=== PATIENT | female | born 1965 | race Caucasian/White ===

== ENCOUNTER 2023-09-24 15:57 | Inpatient (IN) ==
[2023-09-24] MEDS ORDERED: Patient's ALLERGY Info needs ENTERED SCH (16:16)
--- NOTE | 2023-09-24 16:20 | Emergency Department Note ---
ED Provider Note History of Present Illness Chief Complaint: Abdominal Pain Stated Complaint: ABD PAIN Time Seen by Provider: 09/24/23 16:17 This patient is a 57-year-old female who presents to the emergency department for evaluation of abdominal pain and bloating. She states that Tuesday after eating dinner she vomited. She vomited again later after eating something. She states that she laid on the couch for 3 days straight. She then tried to go to work but was unable. She reports her most severe pain is in the right lower abdomen. It is painful for her to urinate. Denies BM changes or fevers. Home Medications Medication Instructions Recorded Confirmed Type amoxicillin 875 mg-potassium 1 tab PO BID #20 tabs 06/15/20 Rx clavulanate 125 mg tablet (Augmentin) Allergies Allergy/AdvReac Type Severity Reaction Status Date / Time No Known Allergies Allergy Unverified 09/25/23 02:47 Past Med/Surg History Medical History Asthma Depression Surgical History Hx of dilation and curettage Family History Daughter Apodaca sarcoma Sister Diabetes Social History Smoking Status: Current every day smoker Tobacco Type: Cigarettes Age Started Using Tobacco: 19; packs per day: 1; Second Hand Exposure: No; Do You Dip or Chew Tobacco: No; Tobacco Cessation Education Requested by Patient: No Hx Alcohol Use: No Hx Substance Use: No Preferred Language: Burkinan Communication Ability: Effective 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 GENERAL: This is a 57-year-old female, in no acute distress, nondiaphoretic, well-developed well-nourished. EARS: External auditory canals clear, tympanic membranes pearly [place] without erythema or effusion bilaterally. MOUTH: Mucous membranes moist. NECK: Supple without nuchal rigidity. HEART: Regular rate and rhythm without murmurs gallops or rubs. LUNGS: Clear to auscultation bilaterally without wheezes, rales or rhonchi. ABDOMEN: Positive bowel sounds x 4. Abdominal tenderness to palpation in the right lower quadrant with guarding. NEURO: Patient was alert and oriented to person place and time. Course Administered Medications Acetaminophen (Acetaminophen 325 Mg Tab) 650 mg PO Q4H PRN PRN Reason: Pain or Fever Stop: 10/24/23 21:32 Last Admin: 09/25/23 23:07 Dose: 650 mg Documented By: Admin: 09/25/23 15:13 Dose: 650 mg Documented By: Admin: 09/25/23 08:17 Dose: 650 mg Documented By: Admin: 09/25/23 00:04 Dose: 650 mg Documented By: ÁNGEL Enoxaparin Sodium (Enoxaparin Inj 40 Mg/0.4 Ml Syr) 40 mg SQ HS VICENTE Stop: 10/25/23 20:59 Last Admin: 09/27/23 21:21 Dose: 40 mg Documented By: Admin: 09/26/23 20:42 Dose: 40 mg Documented By: Admin: 09/25/23 20:57 Dose: 40 mg Documented By: PETRA Piperacillin Sod/Tazobactam (Sod 4.5 gm/ Dextrose) 100 mls @ 25 mls/hr IV Q8H VICENTE; Protocol Stop: 10/05/23 14:59 Last Admin: 09/27/23 22:41 Dose: 25 mls/hr Documented By: Infusion: 09/27/23 19:08 Dose: Infused Documented By: Admin: 09/27/23 14:52 Dose: 25 mls/hr Documented By: Infusion: 09/27/23 10:48 Dose: Infused Documented By: Admin: 09/27/23 06:27 Dose: 25 mls/hr Documented By: Infusion: 09/27/23 04:04 Dose: Infused Documented By: Admin: 09/26/23 23:50 Dose: 25 mls/hr Documented By: Infusion: 09/26/23 20:08 Dose: Infused Documented By: Admin: 09/26/23 15:57 Dose: 25 mls/hr Documented By: Infusion: 09/26/23 10:22 Dose: Infused Documented By: Admin: 09/26/23 06:15 Dose: 25 mls/hr Documented By: Infusion: 09/26/23 03:08 Dose: Infused Documented By: Admin: 09/25/23 23:07 Dose: 25 mls/hr Documented By: Infusion: 09/25/23 20:56 Dose: Infused Documented By: Admin: 09/25/23 15:51 Dose: 25 mls/hr Documented By: DOTTY Discontinued Medications Enoxaparin Sodium (Enoxaparin Inj 40 Mg/0.4 Ml Syr) 40 mg SQ HS VICENTE Stop: 10/24/23 21:32 Last Admin: 09/25/23 01:38 Dose: Not Given Documented By: ÁNGEL Enoxaparin Sodium (Enoxaparin Inj 40 Mg/0.4 Ml Syr) 40 mg SQ NOW STA Stop: 09/25/23 03:18 Last Admin: 09/25/23 03:30 Dose: 40 mg Documented By: ÁNGEL Fentanyl Citrate (Fentanyl Citrate Pf 100 Mcg/2 Ml Vial) Confirm Administered Dose 100 mcg .ROUTE .STK-MED ONE Stop: 09/26/23 11:03 Last Admin: 09/26/23 20:08 Dose: Not Given Documented By: PETRA Piperacillin Sod/Tazobactam Sod (Zosyn) 4.5 gm in 100 mls @ 200 mls/hr IV NOW ONE Stop: 09/24/23 18:41 Last Infusion: 09/24/23 19:59 Dose: Infused Documented By: JOSE MARIA Admin: 09/24/23 19:06 Dose: 200 mls/hr Documented By: KALIAL(2) Sodium Chloride (Nss) 1,000 mls @ 999 mls/hr IV .Q1H1M ONE Stop: 09/24/23 19:23 Last Infusion: 09/24/23 19:59 Dose: Infused Documented By: JOSE MARIA Admin: 09/24/23 19:06 Dose: 999 mls/hr Documented By: KJL(2) Sodium Chloride (Nss) 1,000 mls @ 75 mls/hr IV .[id number] VICENTE Stop: 10/24/23 21:32 Last Infusion: 09/27/23 15:14 Dose: Infused Documented By: Admin: 09/27/23 05:13 Dose: 75 mls/hr Documented By: Infusion: 09/27/23 05:13 Dose: Infused Documented By: Admin: 09/26/23 15:56 Dose: 75 mls/hr Documented By: Infusion: 09/26/23 15:10 Dose: Infused Documented By: Admin: 09/26/23 10:10 Dose: 200 mls/hr Documented By: Infusion: 09/26/23 10:10 Dose: Infused Documented By: Infusion: 09/26/23 05:59 Dose: 200 mls/hr Documented By: Admin: 09/26/23 05:26 Dose: 100 mls/hr Documented By: Infusion: 09/26/23 05:08 Dose: Infused Documented By: Admin: 09/25/23 19:08 Dose: 100 mls/hr Documented By: Infusion: 09/25/23 18:20 Dose: Infused Documented By: Admin: 09/25/23 08:20 Dose: 100 mls/hr Documented By: Infusion: 09/25/23 08:20 Dose: Infused Documented By: Admin: 09/24/23 23:26 Dose: 100 mls/hr Documented By: ÁNGEL Piperacillin Sod/Tazobactam (Sod 4.5 gm/ Dextrose) 100 mls @ 200 mls/hr IV NOW ONE; Protocol Stop: 09/25/23 09:44 Last Infusion: 09/25/23 10:25 Dose: Infused Documented By: Admin: 09/25/23 09:48 Dose: 200 mls/hr Documented By: DOTTY Sodium Chloride (Nss) 1,000 mls @ 999 mls/hr IV .Q1H1M VICENTE Stop: 09/25/23 11:47 Last Infusion: 09/25/23 13:09 Dose: Infused Documented By: Admin: 09/25/23 11:43 Dose: 999 mls/hr Documented By: DOTTY Sodium Chloride (Nss) 1,000 mls @ 999 mls/hr IV .Q1H1M ONE Stop: 09/26/23 05:36 Last Infusion: 09/26/23 06:01 Dose: Infused Documented By: Admin: 09/26/23 05:00 Dose: 999 mls/hr Documented By: PETRA Ioversol (Optiray 320 500ml) 83 ml IV ONCE ONE Stop: 09/24/23 17:49 Last Admin: 09/24/23 17:49 Dose: 83 ml Documented By: MIRTA Morphine Sulfate (Morphine Sulfate 2 Mg/Ml Carp) 0.5 mg IV NOW STA Stop: 09/25/23 15:06 Last Admin: 09/25/23 15:58 Dose: Not Given Documented By: DOTTY Medical Decision Making Differential Diagnosis Appendicitis, ovarian cyst, ovarian torsion, ectopic , TOA, PID, infections, diverticulitis, UTI, obstruction, mesenteric ischemia, aortic pathology, inflammatory bowel disease, renal colic, PUD, pancreatitis, biliary pathology, hernia, volvulus, constipation, as well as other pathologies. Home Medications was personally reviewed by me Laboratory Data Attestation: I reviewed the patient's lab results. 09/27/23 05:56 09/27/23 05:56 Lab Results 09/24/23 09/24/23 Range/Units 17:00 18:33 WBC 14.64 H (4.8-10.8) K/ul RBC 4.47 (4.20-5.40) M/uL Hgb 12.7 (12.0-16.0) g/dl Hct 39.3 (37.0-47.0) % MCV 87.9 (80.0-100.0) fL MCH 28.4 (25.0-34.0) pg MCHC 32.3 (32.0-36.0) g/dL RDW Std Deviation 43.5 (36.4-46.3) fL RDW Coeff of Art 13.4 (11.5-14.5) % Plt Count 373 (130-400) K/uL MPV 9.2 L (9.4-12.4) fL Sodium 138 (136-145) mmol/L Potassium 4.4 (3.5-5.1) mmol/L Chloride 102 (98-107) mmol/L Carbon Dioxide 29 (21-32) mmol/L Anion Gap 7 (3-11) BUN 12 (6-23) mg/dl Creatinine 0.73 (0.6-1.2) mg/dl Est Cr Clr Drug Dosing 87.8 ml/min Est GFR ( Amer) 107.5 ml/min Est GFR (Non-Af Amer) 92.7 ml/min BUN/Creatinine Ratio 16.4 (10-20) Glucose 99 (70-99(Fasting)) mg/dl Lactate 1.3 (0.4-2.0) mmol/L Calcium 9.2 (8.6-10.3) mg/dl Total Bilirubin 0.5 (0.2-1.0) mg/dl AST 23 (13-39) U/L ALT 35 (7-52) U/L Alkaline Phosphatase 141 H (34-104) U/L Total Protein 6.9 (6.0-8.3) gm/dl Albumin 3.7 (3.4-5.0) gm/dl Globulin 3.2 (2.5-4.0) gm/dl Albumin/Globulin Ratio 1.2 (0.9-2) Lipase 17 (11-82) U/L Imaging Data Attestation: I personally reviewed and interpreted this imaging study as follows: Radiologist's Impression: Abdomen/Pelvis CT 09/24/23 16:[address] WITH IV CONTRAST CT DOSE: 762.33 mGy.cm HISTORY: Right lower quadrant abdominal pain. Bloating. TECHNIQUE: Multiaxial CT images of the abdomen and pelvis were performed following the use of intravenous contrast. A dose lowering technique was utilized adhering to the principles of ALARA. COMPARISON STUDY: None. FINDINGS: The lung bases are essentially clear. No acute fractures. The liver, gallbladder, pancreas, spleen, adrenal glands, and kidneys are unremarkable. The main portal vein is patent. No hydronephrosis. Mild calcified plaque within the normal caliber abdominal aorta. No retroperitoneal or pelvic lymphadenopathy. Mild bladder wall thickening with adjacent fat stranding. The uterus and left ovary are unremarkable. No dilated loops of bowel to suggest an obstruction. Distended and thick-walled appendix within the right lower quadrant with a small amount of periappendiceal gas measuring up to 12 mm consistent with perforated acute appendicitis. In addition, there is a loculated 7.0 x 3.0 cm gas and fluid collection extending from the tip of the appendix within the right lower quadrant consistent with a periappendiceal abscess. A few punctate appendicoliths noted at the base of the suspected abscess. There is surrounding inflammatory change. Thickening of the small bowel loops within the right lower quadrant, cecal base thickening, and inflammatory change adjacent to the ovary and bladder. This is likely reactive to the perforated acute appendicitis. Bladder wall thickening could also represent an underlying cystitis. A few prominent ileocolic lymph nodes are also likely reactive to the acute appendicitis. IMPRESSION: 1. Above findings consistent with perforated acute appendicitis with an associated 7.0 x 3.0 cm periappendiceal abscess as described above. 2. Bladder wall thickening with adjacent fat stranding. This could be reactive to the adjacent acute appendicitis. Recommend correlation with urinalysis to exclude a cystitis. 3. Thickening of the small bowel loops within the right lower quadrant and cecal base thickening. This is also likely reactive to the acute appendicitis. ACT 112: Negative or not required by law. Electronically signed by: Jaya Singh M.D. 09/24/2023 6:08 PM MDM Narrative This patient is a 57-year-old female who presents to the emergency department for evaluation of right lower quadrant pain for the past several days. Patient afebrile and nontoxic on arrival. Labs performed and revealed a leukocytosis of 14,000, otherwise unremarkable. Lactate was not elevated. Kidney function and LFTs within normal limits. CT scan showed appendicitis with perforation and abscess. General surgery was consulted and did evaluate the patient. They recommended admission to the medical service for IR drainage and antibiotics. Patient given Zosyn in the ER. Case was then discussed with [facility], who agreed to evaluate the patient for further care. Discharge Plan Visit Data Chief Complaint: Abdominal Pain Stated Complaint: ABD PAIN ED Provider: Vincent Reyes ED Midlevel Provider: Lori Llanos Patient Disposition: Admitted As Inpatient Discharge Instructions Interventions: ED Discharge Assessment Last Done: 09/24/23 21:33
[2023-09-24 17:10] LABS: Hematocrit (blood only) 39.3 % (37.0-47.0); Hemoglobin 12.7 g/dl (12.0-16.0); Mean Corpuscular Hemoglobin 28.4 pg (25.0-34.0); Mean Corpuscular Hgb Conc 32.3 g/dL (32.0-36.0); Mean Corpuscular Volume 87.9 fL (80.0-100.0); Mean Platelet Volume 9.2 fL (9.4-12.4); Platelet Count 373 K/uL (130-400); RDW Coefficient of Variation 13.4 % (11.5-14.5); RDW Standard Deviation 43.5 fL (36.4-46.3); Red Blood Count 4.47 M/uL (4.20-5.40); White Blood Count 14.64 K/ul (4.8-10.8)
[2023-09-24 17:26] LABS: Albumin Globulin Ratio 1.2 (0.9-2); Albumin Level 3.7 gm/dl (3.4-5.0); BUN Creatinine Ratio 16.4 (10-20); Bilirubin,Total 0.5 mg/dl (0.2-1.0); Calcium 9.2 mg/dl (8.6-10.3); Creatinine Clr Calc Pharmacy 87.8 ml/min; Est GFR (African American) 107.5 ml/min; Est GFR (Non-African American) 92.7 ml/min; Globulin 3.2 gm/dl (2.5-4.0); Potassium 4.4 mmol/L (3.5-5.1); Total Protein 6.9 gm/dl (6.0-8.3)
[2023-09-24] MEDS: OPTIRAY 320 500ml IV ONE (17:49)
--- NOTE | 2023-09-24 18:10 | CT Scan Report ---
ABDOMEN AND PELVIS CT WITH IV CONTRAST CT DOSE: 762.33 mGy.cm HISTORY: Right lower quadrant abdominal pain. Bloating. TECHNIQUE: Multiaxial CT images of the abdomen and pelvis were performed following the use of intrave nous contrast. A dose lowering technique was utilized adhering to the principles of ALARA. COMPARISON STUDY: None. FINDINGS: The lung bases are essentially clear. No acute fractures. The liver, gallbladder, pancreas, spleen, adrenal glands, and kidneys are unremarkable. The main portal vein is patent. No hydronephro sis. Mild calcified plaque within the normal caliber abdominal aorta. No retroperitoneal or pelvic ly mphadenopathy. Mild bladder wall thickening with adjacent fat stranding. The uterus and left ovary ar e unremarkable. No dilated loops of bowel to suggest an obstruction. Distended and thick-walled appen jodie within the right lower quadrant with a small amount of periappendiceal gas measuring up to 12 mm consistent with perforated acute appendicitis. In addition, there is a loculated 7.0 x 3.0 cm gas and fluid collection extending from the tip of the appendix within the right lower quadrant consistent w ith a periappendiceal abscess. A few punctate appendicoliths noted at the base of the suspected absce ss. There is surrounding inflammatory change. Thickening of the small bowel loops within the right lo wer quadrant, cecal base thickening, and inflammatory change adjacent to the ovary and bladder. This is likely reactive to the perforated acute appendicitis. Bladder wall thickening could also represent an underlying cystitis. A few prominent ileocolic lymph nodes are also likely reactive to the acute appendicitis. IMPRESSION: 1. Above findings consistent with perforated acute appendicitis with an associated 7.0 x 3.0 cm peria ppendiceal abscess as described above. 2. Bladder wall thickening with adjacent fat stranding. This could be reactive to the adjacent acute appendicitis. Recommend correlation with urinalysis to exclude a cystitis. 3. Thickening of the small bowel loops within the right lower quadrant and cecal base thickening. Thi s is also likely reactive to the acute appendicitis. ACT 112: Negative or not required by law. Electronically signed by: Jaya Singh M.D. 09/24/2023 6:08 PM
[2023-09-24 18:18] LABS: Appearance Urine Slightly Cloudy (Clear); Bilirubin Urine Negative (Negative); Blood Urine Trace-intact (Negative); Color Urine Yellow; Glucose Urine UA Negative (Negative); Ketones Urine Negative (Negative); Leukocyte Esterase Urine Negative (Negative); Nitrite Urine Negative (Negative); Protein Urine 1+ (Negative); Urobilinogen Urine Positive (Negative); pH Urine 8.5 (4.5-7.5)
[2023-09-24 18:27] LABS: Hyaline Casts Urine 0-5 /lpf (0-5)
[2023-09-24 18:29] LABS: Bacteria Urine Negative (Negative); RBC Urine 0-4 /hpf (0-4); WBC Urine 0-5 /hpf (0-5)
[2023-09-24] MEDS: PIPERACILLIN/TAZOBACTAM 4.5 GM/100 ML BAG IV ONE (19:06)
[2023-09-24] MEDS: SODIUM CHLORIDE 0.9% 1,000 ML IV ONE (19:06)
--- NOTE | 2023-09-24 19:31 | History & Physical Report ---
Date of Service September 24, 2023 Assessment & Plan (1) Sepsis: (2) Abdominal pain: (3) Perforated appendix: Plan This is a 57-year-old female who is otherwise healthy and does not take any prescription medication who presents to ED after experiencing abdominal pain for 3 days. Sepsis Abdominal Pain Perforated appendix Appendiceal Abscess --CT abd/pelvis: Above findings consistent with perforated acute appendicitis with an associated 7.0 x 3.0 cm periappendiceal abscess as described above. Admit to med/surg ED provider discussed with Dr. Shirley General Surgery Plan is for IV antibiotics with Zosyn, IR procedure on Tuesday with Hossein Radha, this will need to be coordinated with Hossein on Tuesday or with radiology tomorrow consult general surgery NPO IVF Antiemetics, analgesia CBC, BMP in a.m Tobacco abuse pt declines nicotine patch at this time encourage cessation DVT ppx: SQ Lovenox FULL CODE PCP: No PCP, from [place] Dispo: admit for IV antibiotics, NPO, IR procedure tuesday, further recs per general surgery Pt was seen and examined in collaboration with Dr. Spear, please see addendum A total of 40 minutes was spent coordinating, documenting, and providing care for this patient excluding time spent in the performance of separately billed services. This included personally viewing all current laboratories and imaging studies, medication reconciliation, outpatient chart review, and discussion with specialists. History of Present Illness Chief Complaint: Abdominal pain x 3 days. Primary Care Provider: NO PCP This is a 57-year-old female who is otherwise healthy and does not take any prescription medication who presents to ED after experiencing abdominal pain for 3 days. She states that she noted on Tuesday she developed abdominal pain after eating dinner and she vomited. After this episode she states she laid in bed for 3 straight days and slept. She did wake up occasionally for a drink of water. She felt like she was getting dehydrated. She woke up today because she had to go to work. 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 Today she has been having right lower quadrant abdominal pain and nausea. She offered to present to ED for further evaluation. She denies any documented fever at home. She further denies any chills, sweats, lightheadedness, dizziness, chest pain, shortness of breath, vomiting today, diarrhea, constipation, dysuria, increased urgency or frequency with urination. In ED patient underwent CT scan of abdomen pelvis reveals a perforated acute appendicitis with associated 7 x 3 cm periappendiceal abscess. She was empirically started on IV Zosyn as well as IV fluids. ED provider discussed with general surgery who recommended admission to the hospital, IV antibiotics and likely IR drainage for abscess. Home Medications Medication Instructions Recorded Confirmed Type amoxicillin 875 mg-potassium 1 tab PO BID #20 tabs 06/15/20 Rx clavulanate 125 mg tablet (Augmentin) Past Med/Surg History Medical History (Updated 09/24/23 @ 19:20 by Layla Juares PA-C) Asthma Depression Surgical History (Updated 09/24/23 @ 19:16 by Layla Juares PA-C) Hx of dilation and curettage Family History (Updated 09/24/23 @ 19:17 by Layla Juares PA-C) Daughter Apodaca sarcoma Sister Diabetes Social History (Updated 09/24/23 @ 19:17 by Layla Juares PA-C) Smoking Status: Current every day smoker Tobacco Type: Cigarettes Age Started Using Tobacco: 19; packs per day: 1; Hx Alcohol Use: No Hx Substance Use: No Preferred Language: Icelandic marital status: Single Current Living Situation: Family Current Living Situation Comment: Lives with Son current occupational status: employed Feels Safe at Home: Yes Review of Systems Review of Systems: All systems reviewed & are unremarkable except as noted in HPI & below Physical Exam Physical Exam: Constitutional: WD/WN, nontoxic appearing, vitals as above, NAD, sitting up in bed, pleasant, conversing easily Head: Normocephalic, Atraumatic Eyes: PERRL, conjunctivae normal, anicteric sclerae ENMT: external ear and nose normal, oropharynx normal Neck: trachea midline, no thyromegaly normal visual inspection Respiratory: normal respiratory effort, lungs clear to auscultation, no wheeze, rales, rhonchi. Normal insp/exp effort, no accessory muscle use Cardiovascular: tachycardic, reg rhythm, no murmur, no edema Vessels: no JVD or carotid bruit Chest: normal inspection of chest Abdomen: normal bowel sounds, soft, +TTP RLQ, +rebound, no guarding, no hepatosplenomegaly Musculoskeletal: no cyanosis or clubbing, extremities motor strength 5/5 Skin: no rashes, warm and dry normal turgor Neurologic: PERRL, EOMI, accommodation nl, no face palsy, no dysarthria CN's II-XI intact bilaterally and moves all extremities Psychiatric: A+Ox3, euthymic affect Lymphatic: no cervical or axillary lymphadenopathy : deferred Results & Data Results & Data Vital Signs (Past 12 Hours) Vital Signs Temp Pulse Resp BP Pulse Ox O2 Del Method 09/24/23 16:16 36.8 C 99 H 18 107/66 98 Room Air Laboratory Results I have independently reviewed and interpreted patient's admitting labs including CBC, CMP, lipase, UA. Diagnostic Findings Abdomen/Pelvis CT 09/24/23 16:[address] WITH IV CONTRAST CT DOSE: 762.33 mGy.cm HISTORY: Right lower quadrant abdominal pain. Bloating. TECHNIQUE: Multiaxial CT images of the abdomen and pelvis were performed following the use of intravenous contrast. A dose lowering technique was utilized adhering to the principles of ALARA. COMPARISON STUDY: None. FINDINGS: The lung bases are essentially clear. No acute fractures. The liver, gallbladder, pancreas, spleen, adrenal glands, and kidneys are unremarkable. The main portal vein is patent. No hydronephrosis. Mild calcified plaque within the normal caliber abdominal aorta. No retroperitoneal or pelvic lymphadenopathy. Mild bladder wall thickening with adjacent fat stranding. The uterus and left ovary are unremarkable. No dilated loops of bowel to suggest an obstruction. Distended and thick-walled appendix within the right lower quadrant with a small amount of periappendiceal gas measuring up to 12 mm consistent with perforated acute appendicitis. In addition, there is a loculated 7.0 x 3.0 cm gas and fluid collection extending from the tip of the appendix within the right lower quad rant consistent with a periappendiceal abscess. A few punctate appendicoliths noted at the base of the suspected abscess. There is surrounding inflammatory change. Thickening of the small bowel loops within the right lower quadrant, cecal base thickening, and inflammatory change adjacent to the ovary and bladder. This is likely reactive to the perforated acute appendicitis. Bladder wall thickening could also represent an underlying cystitis. A few prominent ileocolic lymph nodes are also likely reactive to the acute appendicitis. IMPRESSION: 1. Above findings consistent with perforated acute appendicitis with an associated 7.0 x 3.0 cm periappendiceal abscess as described above. 2. Bladder wall thickening with adjacent fat stranding. This could be reactive to the adjacent acute appendicitis. Recommend correlation with urinalysis to exclude a cystitis. 3. Thickening of the small bowel loops within the right lower quadrant and cecal base thickening. This is also likely reactive to the acute appendicitis. ACT 112: Negative or not required by law. Electronically signed by: Jaya Singh M.D. 09/24/2023 6:08 PM Medications Administered Medication List Sodium Chloride (Nss) 1,000 mls @ 999 mls/hr IV .Q1H1M ONE Stop: 09/24/23 19:23 Last Admin: 09/24/23 19:06 Dose: 999 mls/hr Documented By: KALIA Discontinued Medications Piperacillin Sod/Tazobactam Sod (Zosyn) 4.5 gm in 100 mls @ 200 mls/hr IV NOW ONE Stop: 09/24/23 18:41 Last Admin: 09/24/23 19:06 Dose: 200 mls/hr Documented By: KALIA Ioversol (Optiray 320 500ml) 83 ml IV ONCE ONE Stop: 09/24/23 17:49 Last Admin: 09/24/23 17:49 Dose: 83 ml Documented By: MIRTA COVID-19 Results Results COVID-19 Adm Lab Results: RBC 4.47 M/uL (4.20-5.40) 09/24/23 WBC 14.64 K/ul (4.8-10.8) H 09/24/23 Hgb 12.7 g/dl (12.0-16.0) 09/24/23 Hct 39.3 % (37.0-47.0) 09/24/23 Plt Count 373 K/uL (130-400) 09/24/23 Na 138 mmol/L (136-145) 09/24/23 K 4.4 mmol/L (3.5-5.1) 09/24/23 Cl 102 mmol/L (98-107) 09/24/23 CO2 29 mmol/L (21-32) 09/24/23 Anion Gap 7 (3-11) 09/24/23 BUN 12 mg/dl (6-23) 09/24/23 Creatinine 0.73 mg/dl (0.6-1.2) 09/24/23 BUN/Creatinine Ratio 16.4 (10-20) 09/24/23 Glucose Level 99 mg/dl (70-99(Fasting)) 09/24/23 Ca 9.2 mg/dl (8.6-10.3) 09/24/23 Total Bilirubin 0.5 mg/dl (0.2-1.0) 09/24/23 AST/SGOT 23 U/L (13-39) 09/24/23 ALT/SGPT 35 U/L (7-52) 09/24/23 Alkaline Phosphatase 141 U/L (34-104) H 09/24/23 Total Protein 6.9 gm/dl (6.0-8.3) 09/24/23 Albumin 3.7 gm/dl (3.4-5.0) 09/24/23 Globulin 3.2 gm/dl (2.5-4.0) 09/24/23 Albumin/Globulin Ratio 1.2 (0.9-2) 09/24/23 Code Status & VTE Plan Code Status FULL CODE VTE Prophylaxis Plan VTE Prophylaxis will be ordered: Yes Supervising Physician Co-Signing Physician Notes I have seen and examined the patient and have discussed the case with the provider above. I have reviewed the advanced practitioner's documentation, and I agree with, and take responsibility for that plan of care. 57 yo F presents with acute abdominal pain x several days, found to have acute appendicitis with abscess. Pain is well controlled but present. On exam she is slightly tachy with vitals otherwise stable. Although she meets SIRS criteria, she doesnt appear septic on exam. She has an unremarkable cardiopulmonary exam. Abdomen is soft and ND with guarding and significant pain in her RLQ. Skin is warm and dry and she is mentating clearly. Labs, Rads reviewed. Cont broad spectrum abx with Zosyn for treatment of complicated acute appendicitis pending further evaluation and recommendations fr om surgeon. Preliminary discussion with ER provider suggests possible IR guided drainage on Tuesday. Will cont NPO status for now while monitoring her response to therapy. Sips and chips ok. Josephine, DO
--- NOTE | 2023-09-24 21:23 | Surgery Consultation ---
Date of Consultation September 24, 2023 Assessment & Plan (1) Acute appendicitis: 57-year-old woman presents with acute perforated appendicitis with 7 x 3 cm abscess. She is hemodynamically stable. White count of 14. Discussed the case with radiology. Our interventional radiologist is available on Tuesday. We will admit her to the hospital placed on IV fluids and IV antibiotics. We will set her up for percutaneous drainage of the abscess on Tuesday. We will continue to monitor her. Will plan for an interval appendectomy when the inflammation settles down. History of Present Illness Reason for Consultation: Perforated appendicitis with abscess Requesting Physician: Kacy Spear MD Attending Physician: Kacy Spear MD History of Present Illness 57-year-old woman presents with 1 week history of right lower quadrant abdominal pain associated with chills. She has not had an appetite for a few days. She denies nausea or vomiting. She states she has not passed gas today. She had a bowel movement yesterday. She denies chest pain or shortness of breath. She denies fevers. Home Medications Medication Instructions Recorded Confirmed Type amoxicillin 875 mg-potassium 1 tab PO BID #20 tabs 06/15/20 Rx clavulanate 125 mg tablet (Augmentin) Patient History Medical History Asthma Depression Surgical History Hx of dilation and curettage Family History Daughter Apodaca sarcoma Sister Diabetes Social History Smoking Status: Current every day smoker Tobacco Type: Cigarettes Age Started Using Tobacco: 19; packs per day: 1; Hx Alcohol Use: No Hx Substance Use: No Preferred Language: [place] marital status: Single Current Living Situation: Family Current Living Situation Comment: Lives with Son current occupational status: employed Feels Safe at Home: Yes Review of Systems Review of Systems: All systems reviewed & are unremarkable except as noted in HPI & below Physical Exam Constitutional: WD/WN, vitals as above Eyes: PERRL, conjunctivae normal, anicteric sclerae Neck: trachea midline, no thyromegaly Respiratory: normal respiratory effort; no respiratory distress and no labored breathing Cardiovascular: Rate/Rhythm: regular rate and regular rhythm Gastrointestinal (Abdomen): Inspection/Auscultation: abdomen normal to inspection; abdomen not distended Percussion/Palpation: + abdomen tender (RLQ), + guarding (Voluntary, RLQ) and abdomen soft; abdomen not rigid Skin: no rashes, warm and dry Psychiatric: A+Ox3, euthymic affect Results & Data Vital Signs (Past 12 Hours) Vital Signs Temp Pulse Resp BP Pulse Ox O2 Del Method 09/24/23 16:16 36.8 C 99 H 18 107/66 98 Room Air Laboratory Results 09/24/23 09/24/23 09/24/23 Range/Units Unknown 18:33 17:00 WBC 14.64 H (4.8-10.8) K/ul RBC 4.47 (4.20-5.40) M/uL Hgb 12.7 (12.0-16.0) g/dl Hct 39.3 (37.0-47.0) % MCV 87.9 (80.0-100.0) fL MCH 28.4 (25.0-34.0) pg MCHC 32.3 (32.0-36.0) g/dL RDW Std Deviation 43.5 (36.4-46.3) fL RDW Coeff of Art 13.4 (11.5-14.5) % Plt Count 373 (130-400) K/uL MPV 9.2 L (9.4-12.4) fL Sodium 138 (136-145) mmol/L Potassium 4.4 (3.5-5.1) mmol/L Chloride 102 (98-107) mmol/L Carbon Dioxide 29 (21-32) mmol/L Anion Gap 7 (3-11) BUN 12 (6-23) mg/dl Creatinine 0.73 (0.6-1.2) mg/dl Est Cr Clr Drug Dosing 87.8 ml/min Est GFR ( Amer) 107.5 ml/min Est GFR (Non-Af Amer) 92.7 ml/min BUN/Creatinine Ratio 16.4 (10-20) Glucose 99 (70-99(Fasting)) mg/dl Lactate 1.3 (0.4-2.0) mmol/L Calcium 9.2 (8.6-10.3) mg/dl Total Bilirubin 0.5 (0.2-1.0) mg/dl AST 23 (13-39) U/L ALT 35 (7-52) U/L Alkaline Phosphatase 141 H (34-104) U/L Total Protein 6.9 (6.0-8.3) gm/dl Albumin 3.7 (3.4-5.0) gm/dl Globulin 3.2 (2.5-4.0) gm/dl Albumin/Globulin Ratio 1.2 (0.9-2) Lipase 17 (11-82) U/L Urine Color Yellow Urine Appearance Slightly Cloudy (Clear) Urine pH 8.5 H (4.5-7.5) Ur Specific [place] 1.020 (1.000-1.030) Urine Protein 1+ H (Negative) Urine Glucose (UA) Negative (Negative) Urine Ketones Negative (Negative) Urine Blood Trace-intact H (Negative) Urine Nitrite Negative (Negative) Urine Bilirubin Negative (Negative) Urine Urobilinogen Positive H (Negative) Ur Leukocyte Esterase Negative (Negative) Urine RBC 0-4 (0-4) /hpf Urine WBC 0-5 (0-5) /hpf Ur Epithelial Cells 5-10 H (0-5) /lpf Urine Bacteria Negative (Negative) Hyaline Casts 0-5 (0-5) /lpf Diagnostic Findings ABDOMEN AND PELVIS CT WITH IV CONTRAST CT DOSE: 762.33 mGy.cm HISTORY: Right lower quadrant abdominal pain. Bloating. TECHNIQUE: Multiaxial CT images of the abdomen and pelvis were performed following the use of intravenous contrast. A dose lowering technique was utilized adhering to the principles of ALARA. COMPARISON STUDY: None. FINDINGS: The lung bases are essentially clear. No acute fractures. The liver, gallbladder, pancreas, spleen, adrenal glands, and kidneys are unremarkable. The main portal vein is patent. No hydronephrosis. Mild calcified plaque within the normal caliber abdominal aorta. No retroperitoneal or pelvic lymphadenopathy. Mild bladder wall thickening with adjacent fat stranding. The uterus and left ovary are unremarkable. No dilated loops of bowel to suggest an obstruction. Distended and thick-walled appendix within the right lower quadrant with a small amount of periappendiceal gas measuring up to 12 mm consistent with perforated acute appendicitis. In addition, there is a loculated 7.0 x 3.0 cm gas and fluid collection extending from the tip of the appendix within the right lower quadrant consistent with a periappendiceal abscess. A few punctate appendicoliths noted at the base of the suspected abscess. There is surrounding inflammatory change. Thickening of the small bowel loops within the right lower quadrant, cecal base thickening, and inflammatory change adjacent to the ovary and bladder. This is likely reactive to the perforated acute appendicitis. Bladder wall thickening could also represent an underlying cystitis. A few prominent ileocolic lymph nodes are also likely reactive to the acute ap pendicitis. IMPRESSION: 1. Above findings consistent with perforated acute appendicitis with an associated 7.0 x 3.0 cm periappendiceal abscess as described above. 2. Bladder wall thickening with adjacent fat stranding. This could be reactive to the adjacent acute appendicitis. Recommend correlation with urinalysis to exclude a cystitis. 3. Thickening of the small bowel loops within the right lower quadrant and cecal base thickening. This is also likely reactive to the acute appendicitis. ACT 112: Negative or not required by law. Electronically signed by: Jaya Singh M.D. 09/24/2023 6:08 PM (1) Acute appendicitis Acute appendicitis type: with localized peritonitis Appendicitis gangrene presence: without gangrene Appendicitis perforation presence: with perforation Appendicitis abscess presence: with abscess Qualified Code(s): K35.33 - Acute appendicitis with perforation, localized peritonitis, and gangrene, with abscess
[2023-09-24] MEDS: SODIUM CHLORIDE 0.9% 1,000 ML IV SCH (23:26)
[2023-09-24] MEDS ORDERED: Nursing to Pharmacy Communication SCH (23:30)
[2023-09-25] MEDS: ACETAMINOPHEN 325 MG TAB PO PRN (00:04)
[2023-09-25] MEDS: ENOXAPARIN INJ 40 MG/0.4 ML SYR SQ SCH ×2 (01:38→20:57)
[2023-09-25] MEDS: ENOXAPARIN INJ 40 MG/0.4 ML SYR SQ STA (03:30)
[2023-09-25 07:42] LABS: Basophils # (auto) 0.05 K/uL (0.00-0.20); Basophils % (auto) 0.3 %; Eosinophils # (auto) 0.12 K/uL (0.00-0.50); Eosinophils % (auto) 0.6 %; Hematocrit (blood only) 33.8 % (37.0-47.0); Immature Granulocytes # (auto) 0.14 K/uL (0.01-0.20); Immature Granulocytes % (auto) 0.7 %; Lymphocytes # (auto) 2.67 K/uL (1.20-3.40); Lymphocytes % (auto) 14.1 %; Mean Corpuscular Hemoglobin 28.4 pg (25.0-34.0); Mean Corpuscular Hgb Conc 32.5 g/dL (32.0-36.0); Mean Corpuscular Volume 87.3 fL (80.0-100.0); Mean Platelet Volume 9.5 fL (9.4-12.4); Monocytes # (auto) 1.93 K/uL (0.11-0.59); Monocytes % (auto) 10.2 %; Neutrophils # (auto) 14.06 K/uL (1.40-6.50); Neutrophils % (auto) 74.1 %; Platelet Count 329 K/uL (130-400); RDW Coefficient of Variation 13.4 % (11.5-14.5); RDW Standard Deviation 42.9 fL (36.4-46.3); Red Blood Count 3.87 M/uL (4.20-5.40); White Blood Count 18.97 K/ul (4.8-10.8)
[2023-09-25 07:57] LABS: BUN Creatinine Ratio 11.8 (10-20); Calcium 8.4 mg/dl (8.6-10.3); Creatinine Clr Calc Pharmacy 94.3 ml/min; Est GFR (African American) 114.1 ml/min; Est GFR (Non-African American) 98.5 ml/min; Potassium 4.5 mmol/L (3.5-5.1)
[2023-09-25] MEDS: PIPER/TAZO 4.5g in D5W MINI-B 100 ML IV ONE (09:48)
[2023-09-25] MEDS: SODIUM CHLORIDE 0.9% 1,000 ML IV SCH (11:43)
--- NOTE | 2023-09-25 13:42 | Surgery Progress Note ---
Date of Service September 25, 2023 Assessment & Plan (1) Acute appendicitis: Plan 57-year-old woman with acute perforated appendicitis with abscess. She is stable at this time. We will continue IV antibiotics. We will have IR place a percutaneous drain in the abscess tomorrow morning. We will continue to monitor. We will plan for elective appendectomy in a few weeks when the inflammation has all settled down. If she worsens, she may require earlier operative therapy. Admission and Anticipated Discharge Date Admission Date: September 24, 2023 Subjective Feeling about the same today. Some abdominal pain in the lower right abdomen. No nausea or vomiting. She is hungry and is tolerating clears. Physical Exam Physical Exam: AFVSS NAD, A&O x 3 Abdomen: Soft, mild TTP in RLQ Results & Data Vital Signs (Past 12 Hours) Vital Signs Temp Pulse Pulse Resp BP BP Pulse Ox 09/25/23 12:29 76 18 82/54 L 97 09/25/23 11:36 36.7 C 81 18 80/50 L 83/56 L 93 09/25/23 07:07 81 09/25/23 02:45 36.9 C 83 16 95/59 L 92 09/25/23 01:48 O2 Del Method 09/25/23 12:29 Room Air 09/25/23 11:36 Room Air 09/25/23 07:07 09/25/23 02:45 Room Air 09/25/23 01:48 Room Air Laboratory Results 09/25/23 09/24/23 09/24/23 Range/Units 07:12 Unknown 18:33 WBC 18.97 H (4.8-10.8) K/ul RBC 3.87 L (4.20-5.40) M/uL Hgb 11.0 L (12.0-16.0) g/dl Hct 33.8 L (37.0-47.0) % MCV 87.3 (80.0-100.0) fL MCH 28.4 (25.0-34.0) pg MCHC 32.5 (32.0-36.0) g/dL RDW Std Deviation 42.9 (36.4-46.3) fL RDW Coeff of Art 13.4 (11.5-14.5) % Plt Count 329 (130-400) K/uL MPV 9.5 (9.4-12.4) fL Immature Gran % (Auto) 0.7 % Neut % (Auto) 74.1 % Lymph % (Auto) 14.1 % [place] % (Auto) 10.2 % Eos % (Auto) 0.6 % Baso % (Auto) 0.3 % Neut # (Auto) 14.06 H (1.40-6.50) K/uL Lymph # (Auto) 2.67 (1.20-3.40) K/uL [place] # (Auto) 1.93 H (0.11-0.59) K/uL Eos # (Auto) 0.12 (0.00-0.50) K/uL Baso # (Auto) 0.05 (0.00-0.20) K/uL Immature Gran # (Auto) 0.14 (0.01-0.20) K/uL Sodium 137 (136-145) mmol/L Potassium 4.5 (3.5-5.1) mmol/L Chloride 107 (98-107) mmol/L Carbon Dioxide 23 (21-32) mmol/L Anion Gap 7 (3-11) BUN 8 (6-23) mg/dl Creatinine 0.68 (0.6-1.2) mg/dl Est Cr Clr Drug Dosing 94.3 ml/min Est GFR ( Amer) 114.1 ml/min Est GFR (Non-Af Amer) 98.5 ml/min BUN/Creatinine Ratio 11.8 (10-20) Glucose 95 (70-99(Fasting)) mg/dl Lactate 1.3 (0.4-2.0) mmol/L Calcium 8.4 L (8.6-10.3) mg/dl Total Bilirubin (0.2-1.0) mg/dl AST (13-39) U/L ALT (7-52) U/L Alkaline Phosphatase (34-104) U/L Total Protein (6.0-8.3) gm/dl Albumin (3.4-5.0) gm/dl Globulin (2.5-4.0) gm/dl Albumin/Globulin Ratio (0.9-2) Lipase (11-82) U/L Urine Color Yellow Urine Appearance Slightly Cloudy (Clear) Urine pH 8.5 H (4.5-7.5) Ur Specific [place] 1.020 (1.000-1.030) Urine Protein 1+ H (Negative) Urine Glucose (UA) Negative (Negative) Urine Ketones Negative (Negative) Urine Blood Trace-intact H (Negative) Urine Nitrite Negative (Negative) Urine Bilirubin Negative (Negative) Urine Urobilinogen Positive H (Negative) Ur Leukocyte Esterase Negative (Negative) Urine RBC 0-4 (0-4) /hpf Urine WBC 0-5 (0-5) /hpf Ur Epithelial Cells 5-10 H (0-5) /lpf Urine Bacteria Negative (Negative) Hyaline Casts 0-5 (0-5) /lpf 09/24/23 Range/Units 17:00 WBC 14.64 H (4.8-10.8) K/ul RBC 4.47 (4.20-5.40) M/uL Hgb 12.7 (12.0-16.0) g/dl Hct 39.3 (37.0-47.0) % MCV 87.9 (80.0-100.0) fL MCH 28.4 (25.0-34.0) pg MCHC 32.3 (32.0-36.0) g/dL RDW Std Deviation 43.5 (36.4-46.3) fL RDW Coeff of Art 13.4 (11.5-14.5) % Plt Count 373 (130-400) K/uL MPV 9.2 L (9.4-12.4) fL Immature Gran % (Auto) % Neut % (Auto) % Lymph % (Auto) % [place] % (Auto) % Eos % (Auto) % Baso % (Auto) % Neut # (Auto) (1.40-6.50) K/uL Lymph # (Auto) (1.20-3.40) K/uL [place] # (Auto) (0.11-0.59) K/uL Eos # (Auto) (0.00-0.50) K/uL Baso # (Auto) (0.00-0.20) K/uL Immature Gran # (Auto) (0.01-0.20) K/uL Sodium 138 (136-145) mmol/L Potassium 4.4 (3.5-5.1) mmol/L Chloride 102 (98-107) mmol/L Carbon Dioxide 29 (21-32) mmol/L Anion Gap 7 (3-11) BUN 12 (6-23) mg/dl Creatinine 0.73 (0.6-1.2) mg/dl Est Cr Clr Drug Dosing 87.8 ml/min Est GFR ( Amer) 107.5 ml/min Est GFR (Non-Af Amer) 92.7 ml/min BUN/Creatinine Ratio 16.4 (10-20) Glucose 99 (70-99(Fasting)) mg/dl Lactate (0.4-2.0) mmol/L Calcium 9.2 (8.6-10.3) mg/dl Total Bilirubin 0.5 (0.2-1.0) mg/dl AST 23 (13-39) U/L ALT 35 (7-52) U/L Alkaline Phosphatase 141 H (34-104) U/L Total Protein 6.9 (6.0-8.3) gm/dl Albumin 3.7 (3.4-5.0) gm/dl Globulin 3.2 (2.5-4.0) gm/dl Albumin/Globulin Ratio 1.2 (0.9-2) Lipase 17 (11-82) U/L Urine Color Urine Appearance (Clear) Urine pH (4.5-7.5) Ur Specific [place] (1.000-1.030) Urine Protein (Negative) Urine Glucose (UA) (Negative) Urine Ketones (Negative) Urine Blood (Negative) Urine Nitrite (Negative) Urine Bilirubin (Negative) Urine Urobilinogen (Negative) Ur Leukocyte Esterase (Negative) Urine RBC (0-4) /hpf Urine WBC (0-5) /hpf Ur Epithelial Cells (0-5) /lpf Urine Bacteria (Negative) Hyaline Casts (0-5) /lpf (1) Acute appendicitis Acute appendicitis type: with localized peritonitis Appendicitis gangrene presence: without gangrene Appendicitis perforation presence: with perforation Appendicitis abscess presence: with abscess Qualified Code(s): K35.33 - Acute appendicitis with perforation, localized peritonitis, and gangrene, with abscess
[2023-09-25] MEDS ORDERED: MoRPHine SULFATE 2 MG/ML CARP IV PRN (15:50)
[2023-09-25] MEDS: PIPERACILLIN/TAZOBACTAM 4.5 GM in DEXTROSE 5% MINI-B 100 ML IV SCH (15:51)
[2023-09-25] MEDS: MoRPHine SULFATE 2 MG/ML CARP IV STA (15:58)
--- NOTE | 2023-09-25 15:58 | Hospitalist Progress Note ---
Date of Service September 25, 2023 Assessment & Plan (1) Sepsis: (2) Abdominal pain: (3) Perforated appendix: Plan This is a 57-year-old female who is otherwise healthy and does not take any prescription medication who presents to ED after experiencing abdominal pain for 3 days. She is being managed for the following: Sepsis Abdominal Pain Perforated appendix Appendiceal Abscess CT abd/pelvis: Above findings consistent with perforated acute appendicitis with an associated 7.0 x 3.0 cm periappendiceal abscess as described above. Admitted to med/surg ED provider discussed with Dr. Shirley General Surgery d/w Sx 09/25- Plan is for IV antibiotics with Zosyn, IR procedure on Tuesday. If worsens, operative therapy. General surgery on board. Appreciate recommendation. NPO midnight. Continue IVF. Antiemetics, analgesia CBC, BMP in a.m Tobacco abuse pt declines nicotine patch at this time encourage cessation DVT ppx: SQ Lovenox FULL CODE PCP: No PCP, from [place] Dispo: admit for IV antibiotics, NPO, IR procedure tuesday, further recs per general surgery Admission and Anticipated Discharge Date Admission Date: September 24, 2023 Subjective Patient was seen and examined at bedside. Patient was lying in bed, on room air, resting comfortably, not in any acute distress. Patient is on clear liquid diet, feels hungry and wants to eat. Patient reports abdominal pain under control. Denies any febrile illness or chest pain or shortness of breath or palpitation. Denies nausea and vomiting. Physical Exam Physical Exam: Constitutional: WD/WN, nontoxic appearing, vitals as above, NAD, sitting up in bed, pleasant, conversing easily Head: Normocephalic, Atraumatic Eyes: PERRL, conjunctivae normal, anicteric sclerae ENMT: external ear and nose normal, oropharynx normal Neck: trachea midline, no thyromegaly normal visual inspection Respiratory: normal respiratory effort, lungs clear to auscultation, no wheeze, rales, rhonchi. Normal insp/exp effort, no accessory muscle use Cardiovascular: tachycardic, reg rhythm, no murmur, no edema Vessels: no JVD or carotid bruit Chest: normal inspection of chest Abdomen: normal bowel sounds, soft, +TTP RLQ, +rebound, no guarding, no hepatosplenomegaly Musculoskeletal: no cyanosis or clubbing, extremities motor strength 5/5 Skin: no rashes, warm and dry normal turgor Neurologic: PERRL, EOMI, accommodation nl, no face palsy, no dysarthria CN's II-XI intact bilaterally and moves all extremities Psychiatric: A+Ox3, euthymic affect Lymphatic: no cervical or axillary lymphadenopathy : deferred Results & Data Results & Data Vital Signs (Past 12 Hours) Vital Signs Temp Pulse Pulse Resp BP BP Pulse Ox 09/25/23 15:25 38.0 C H 114 H 18 90/58 L 93 09/25/23 12:29 76 18 82/54 L 97 09/25/23 11:36 36.7 C 81 18 80/50 L 83/56 L 93 09/25/23 07:07 81 O2 Del Method 09/25/23 15:25 Room Air 09/25/23 12:29 Room Air 09/25/23 11:36 Room Air 09/25/23 07:07
[2023-09-26] MEDS: SODIUM CHLORIDE 0.9% 1,000 ML IV ONE (05:00)
[2023-09-26 06:13] LABS: BUN Creatinine Ratio 8.5 (10-20); Calcium 7.7 mg/dl (8.6-10.3); Creatinine Clr Calc Pharmacy 90.3 ml/min; Est GFR (African American) 111.1 ml/min; Est GFR (Non-African American) 95.9 ml/min; Magnesium 1.7 mg/dl (1.7-2.4); Phosphorus 3.4 mg/dl (2.5-4.9); Potassium 3.9 mmol/L (3.5-5.1)
[2023-09-26 06:35] LABS: Hematocrit (blood only) 33.1 % (37.0-47.0); Hemoglobin 10.5 g/dl (12.0-16.0); Mean Corpuscular Hemoglobin 28.4 pg (25.0-34.0); Mean Corpuscular Hgb Conc 31.7 g/dL (32.0-36.0); Mean Corpuscular Volume 89.5 fL (80.0-100.0); Mean Platelet Volume 10.2 fL (9.4-12.4); Platelet Count 315 K/uL (130-400); RDW Coefficient of Variation 13.4 % (11.5-14.5); White Blood Count 18.39 K/ul (4.8-10.8)
--- NOTE | 2023-09-26 08:40 | Surgery Progress Note ---
Date of Service September 26, 2023 Assessment & Plan (1) Acute appendicitis: Plan 57-year-old woman with acute perforated appendicitis with abscess. She is stable at this time. We will continue IV antibiotics. IR drain ordered for this morning. Continuing to monitor. Admission and Anticipated Discharge Date Admission Date: September 24, 2023 Subjective States the pain is better this morning. No nausea or vomiting. Physical Exam Physical Exam: AFVSS NAD, A&O x 3 Abdomen: Soft, mild TTP in RLQ Results & Data Vital Signs (Past 12 Hours) Vital Signs Temp Pulse Pulse Resp BP Pulse Ox O2 Del Method 09/26/23 07:46 37.0 C 81 16 100/65 90 Room Air 09/26/23 03:18 37.1 C 80 18 82/51 L 93 Room Air 09/25/23 23:46 38.4 C H 87 18 99/62 L 93 Room Air 09/25/23 23:28 84 Laboratory Results 09/26/23 09/26/23 Range/Units 05:53 05:41 WBC 18.39 H (4.8-10.8) K/ul RBC 3.70 L (4.20-5.40) M/uL Hgb 10.5 L (12.0-16.0) g/dl Hct 33.1 L (37.0-47.0) % MCV 89.5 (80.0-100.0) fL MCH 28.4 (25.0-34.0) pg MCHC 31.7 L (32.0-36.0) g/dL RDW Std Deviation 44.0 (36.4-46.3) fL RDW Coeff of Art 13.4 (11.5-14.5) % Plt Count 315 (130-400) K/uL MPV 10.2 (9.4-12.4) fL Sodium 139 (136-145) mmol/L Potassium 3.9 (3.5-5.1) mmol/L Chloride 110 H (98-107) mmol/L Carbon Dioxide 23 (21-32) mmol/L Anion Gap 6 (3-11) BUN 6 (6-23) mg/dl Creatinine 0.71 (0.6-1.2) mg/dl Est Cr Clr Drug Dosing 90.3 ml/min Est GFR ( Amer) 111.1 ml/min Est GFR (Non-Af Amer) 95.9 ml/min BUN/Creatinine Ratio 8.5 L (10-20) Glucose 94 (70-99(Fasting)) mg/dl Lactate 0.8 (0.4-2.0) mmol/L Calcium 7.7 L (8.6-10.3) mg/dl Phosphorus 3.4 (2.5-4.9) mg/dl Magnesium 1.7 (1.7-2.4) mg/dl (1) Acute appendicitis Acute appendicitis type: with localized peritonitis Appendicitis gangrene presence: without gangrene Appendicitis perforation presence: with perforation Appendicitis abscess presence: with abscess Qualified Code(s): K35.33 - Acute appendicitis with perforation, localized peritonitis, and gangrene, with abscess
[2023-09-26 10:02] LABS: INR 1.2 (0.9-1.1); Prothrombin Time 12.9 Seconds (9.0-12.0)
--- NOTE | 2023-09-26 15:00 | CT Scan Report ---
CT-guided right lower quadrant abscess drain placement INDICATION: Appendiceal abscess PROCEDURE: Procedure and risks were explained. Informed consent was obtained. A final timeout was com pleted. The patient was placed supine on the CT exam table. The right lower quadrant was prepped and draped in sterile fashion. 1% buffered lidocaine was utilized for skin anesthesia. Utilizing CT guidance, an 18-gauge 10 cm Chiba needle was advanced into the right lower quadrant absc ess collection. A 0.035 Amplatz wire was introduced through the entry needle and exchanged out for an 8 Latvian locking pigtail catheter. Approximately 15 mL of purulent fluid was removed during the proc edure and sent to lab for culture analysis. The catheter was sutured to the skin with 2-[address] aced to suction bag drainage. Post-CT imaging demonstrated adequate catheter position with reduction of the abscess collection. The patient tolerated the procedure well. Vital signs will be monitored po stprocedure. IMPRESSION: Abscess drain placement as detailed above. Performed, dictated, and signed by Trenton Martin PA-C; to be co-signed by Dr. Jaya Singh. Electronically signed by: Jaya Singh M.D. 09/26/2023 3:07 PM
--- NOTE | 2023-09-26 15:46 | Hospitalist Progress Note ---
Date of Service September 26, 2023 Assessment & Plan (1) Sepsis: (2) Abdominal pain: (3) Perforated appendix: Plan This is a 57-year-old female who is otherwise healthy and does not take any prescription medication who presents to ED after experiencing abdominal pain for 3 days. She is being managed for the following: Sepsis Abdominal Pain Perforated appendix Appendiceal Abscess CT abd/pelvis: Above findings consistent with perforated acute appendicitis with an associated 7.0 x 3.0 cm periappendiceal abscess as described above. Admitted to med/surg ED provider discussed with Dr. Shirley General Surgery Status post IR drainage 09/26/2023 Continue with IV antibiotic. General surgery on board. Appreciate recommendation. Discussed with surgery, started on clear liquid diet, plan to advance up to full liquid diet today until reassessment tomorrow morning. Antiemetics, analgesia CBC, BMP in a.m Likely DC IVF destiny. Tobacco abuse pt declines nicotine patch at this time encourage cessation DVT ppx: SQ Lovenox FULL CODE PCP: No PCP, from [facility] Dispo: Likely DC in next 1 to 2 days. Admission and Anticipated Discharge Date Admission Date: September 24, 2023 Subjective Patient was seen and examined at bedside. Patient is a status post IR drainage of appendiceal abscess. Appears comfortable. Reports minimal operative site pain. Patient to be started on clear liquid diet, only advance up to full liquid today. Discussed with surgery. Notified RN as well. Patient denies nausea or vomiting or increased abdominal pain. Denies any febrile illness or chest pain or shortness of breath. Physical Exam Physical Exam: Constitutional: WD/WN, nontoxic appearing, vitals as above, NAD, sitting up in bed, pleasant, conversing easily Head: Normocephalic, Atraumatic Eyes: PERRL, conjunctivae normal, anicteric sclerae ENMT: external ear and nose normal, oropharynx normal Neck: trachea midline, no thyromegaly normal visual inspection Respiratory: normal respiratory effort, lungs clear to auscultation, no wheeze, rales, rhonchi. Normal insp/exp effort, no accessory muscle use Cardiovascular: tachycardic, reg rhythm, no murmur, no edema Vessels: no JVD or carotid bruit Chest: normal inspection of chest Abdomen: normal bowel sounds, soft, IR drain in place/clean dressing no soakage, no guarding, no hepatosplenomegaly Musculoskeletal: no cyanosis or clubbing, extremities motor strength 5/5 Skin: no rashes, warm and dry normal turgor Neurologic: PERRL, EOMI, accommodation nl, no face palsy, no dysarthria CN's II-XI intact bilaterally and moves all extremities Psychiatric: A+Ox3, euthymic affect Lymphatic: no cervical or axillary lymphadenopathy : deferred Results & Data Results & Data Vital Signs (Past 12 Hours) Vital Signs Temp Pulse Resp BP Pulse Ox O2 Del Method 09/26/23 15:10 36.7 C 74 20 116/74 96 Room Air 09/26/23 12:45 37.4 C 80 16 109/73 96 Room Air 09/26/23 12:30 37.1 C 84 16 112/74 94 Room Air 09/26/23 12:15 37 C 89 16 110/70 90 Room Air 09/26/23 07:46 37.0 C 81 16 100/65 90 Room Air
[2023-09-26] MEDS: fentaNYL citrate PF 100 MCG/2 ML VIAL ONE (20:08)
[2023-09-27 06:33] LABS: Hematocrit (blood only) 30.1 % (37.0-47.0); Hemoglobin 9.9 g/dl (12.0-16.0); Mean Corpuscular Hemoglobin 28.7 pg (25.0-34.0); Mean Corpuscular Hgb Conc 32.9 g/dL (32.0-36.0); Mean Corpuscular Volume 87.2 fL (80.0-100.0); Mean Platelet Volume 9.6 fL (9.4-12.4); Platelet Count 342 K/uL (130-400); RDW Coefficient of Variation 13.5 % (11.5-14.5); RDW Standard Deviation 43.1 fL (36.4-46.3); Red Blood Count 3.45 M/uL (4.20-5.40); White Blood Count 15.98 K/ul (4.8-10.8)
[2023-09-27 06:56] LABS: BUN Creatinine Ratio 7.1 (10-20); Calcium 8.2 mg/dl (8.6-10.3); Creatinine Clr Calc Pharmacy 91.6 ml/min; Est GFR (Non-African American) 97.5 ml/min; Magnesium 1.8 mg/dl (1.7-2.4); Phosphorus 3.3 mg/dl (2.5-4.9); Potassium 3.9 mmol/L (3.5-5.1)
--- NOTE | 2023-09-27 07:18 | Surgery Progress Note ---
Date of Service September 27, 2023 Assessment & Plan (1) Acute appendicitis: Plan: IR drain placed yesterday. doing well continue IV antibiotics advance diet as tolerated continuing to monitor Admission and Anticipated Discharge Date Admission Date: September 24, 2023 Subjective doing well this am. drain placed yesterday in IR. some pain in RLQ. no nausea. hungry. Physical Exam Physical Exam: AFVSS NAD, A&O x 3 Abdomen: Soft, mild TTP in RLQ RLQ catheter in place draining purulent fluid Results & Data Vital Signs (Past 12 Hours) Vital Signs Temp Pulse Pulse Resp BP Pulse Ox O2 Del Method 09/27/23 02:53 37.1 C 80 16 110/66 91 Room Air 09/27/23 00:48 76 09/26/23 22:48 36.9 C 84 18 107/63 92 Room Air 09/26/23 20:11 36.7 C 78 18 115/72 95 Room Air (1) Acute appendicitis Acute appendicitis type: with localized peritonitis Appendicitis gangrene presence: without gangrene Appendicitis perforation presence: with perforation Appendicitis abscess presence: with abscess Qualified Code(s): K35.33 - Acute appendicitis with perforation, localized peritonitis, and gangrene, with abscess
--- NOTE | 2023-09-27 15:11 | Hospitalist Progress Note ---
Date of Service September 27, 2023 Assessment & Plan (1) Sepsis: (2) Abdominal pain: (3) Perforated appendix: Plan This is a 57-year-old female who is otherwise healthy and does not take any prescription medication who presents to ED after experiencing abdominal pain for 3 days. She is being managed for the following: Sepsis Abdominal Pain Perforated appendix Appendiceal Abscess CT abd/pelvis: Above findings consistent with perforated acute appendicitis with an associated 7.0 x 3.0 cm periappendiceal abscess as described above. Admitted to med/surg ED provider discussed with Dr. Shirley General Surgery Status post IR drainage 09/26/2023, follow operative culture. Continue with IV antibiotic. Tailor antibiotic once the culture and sensitivities out. General surgery on board. Appreciate recommendation. Patient tolerating advancement of diet well. Advance diet as tolerated. DC IVF Antiemetics, analgesia CBC, BMP in a.m Tobacco abuse pt declines nicotine patch at this time encourage cessation DVT ppx: SQ Lovenox FULL CODE PCP: No PCP, from [place] Dispo: Likely DC in next 1 to 2 days with surgical clearance. Admission and Anticipated Discharge Date Admission Date: September 24, 2023 Subjective Patient was seen and examined at bedside. Patient is a status post IR drainage of appendiceal abscess 09/26/23. Appears comfortable. Reports minimal operative site pain. Patient tolerating advancement of diet well, will advance the diet to regular consistency as patient is insisting to have regular consistency diet. Patient denies nausea or vomiting or increased abdominal pain. Denies any febrile illness or chest pain or shortness of breath. Physical Exam Physical Exam: Constitutional: WD/WN, nontoxic appearing, vitals as above, NAD, sitting up in bed, pleasant, conversing easily Head: Normocephalic, Atraumatic Eyes: PERRL, conjunctivae normal, anicteric sclerae ENMT: external ear and nose normal, oropharynx normal Neck: trachea midline, no thyromegaly normal visual inspection Respiratory: normal respiratory effort, lungs clear to auscultation, no wheeze, rales, rhonchi. Normal insp/exp effort, no accessory muscle use Cardiovascular: tachycardic, reg rhythm, no murmur, no edema Vessels: no JVD or carotid bruit Chest: normal inspection of chest Abdomen: normal bowel sounds, soft, IR drain in place/clean dressing no soakage, no guarding, no hepatosplenomegaly Musculoskeletal: no cyanosis or clubbing, extremities motor strength 5/5 Skin: no rashes, warm and dry normal turgor Neurologic: PERRL, EOMI, accommodation nl, no face palsy, no dysarthria CN's II-XI intact bilaterally and moves all extremities Psychiatric: A+Ox3, euthymic affect Lymphatic: no cervical or axillary lymphadenopathy : deferred Results & Data Results & Data Vital Signs (Past 12 Hours) Vital Signs Temp Pulse Pulse Resp BP Pulse Ox O2 Del Method 09/27/23 15:08 37.0 C 79 20 103/66 96 Room Air 09/27/23 11:28 80 09/27/23 11:23 36.5 C 76 20 100/65 95 Room Air 09/27/23 07:21 36.8 C 66 16 111/64 93 Room Air
[2023-09-28 07:15] LABS: Hematocrit (blood only) 31.7 % (37.0-47.0); Hemoglobin 10.6 g/dl (12.0-16.0); Mean Corpuscular Hemoglobin 28.9 pg (25.0-34.0); Mean Corpuscular Hgb Conc 33.4 g/dL (32.0-36.0); Mean Corpuscular Volume 86.4 fL (80.0-100.0); Mean Platelet Volume 9.7 fL (9.4-12.4); Platelet Count 402 K/uL (130-400); RDW Coefficient of Variation 13.2 % (11.5-14.5); RDW Standard Deviation 41.2 fL (36.4-46.3); Red Blood Count 3.67 M/uL (4.20-5.40); White Blood Count 12.06 K/ul (4.8-10.8)
[2023-09-28 07:17] LABS: BUN Creatinine Ratio 6.1 (10-20); Calcium 8.6 mg/dl (8.6-10.3); Creatinine Clr Calc Pharmacy 97.2 ml/min; Est GFR (African American) 115.3 ml/min; Est GFR (Non-African American) 99.4 ml/min; Magnesium 1.9 mg/dl (1.7-2.4)
--- NOTE | 2023-09-28 08:42 | Surgery Progress Note ---
Date of Service September 28, 2023 Assessment & Plan (1) Acute appendicitis: Plan: IR drain in place. doing well continue IV antibiotics - 1-2 more days advance diet as tolerated continuing to monitor Admission and Anticipated Discharge Date Admission Date: September 24, 2023 Subjective doing well. Some soreness today. No fevers. Tolerating diet. Physical Exam Physical Exam: AFVSS NAD, A&O x 3 Abdomen: Soft, mild TTP in RLQ RLQ catheter in place draining purulent fluid Results & Data Vital Signs (Past 12 Hours) Vital Signs Temp Pulse Pulse Resp BP Pulse Ox O2 Del Method 09/28/23 08:19 36.7 C 72 17 112/71 94 Room Air 09/28/23 03:00 36.8 C 68 18 109/73 96 Room Air 09/27/23 22:56 36.5 C 73 18 108/69 96 Room Air 09/27/23 21:55 67 Laboratory Results 09/28/23 Range/Units 06:13 WBC 12.06 H (4.8-10.8) K/ul RBC 3.67 L (4.20-5.40) M/uL Hgb 10.6 L (12.0-16.0) g/dl Hct 31.7 L (37.0-47.0) % MCV 86.4 (80.0-100.0) fL MCH 28.9 (25.0-34.0) pg MCHC 33.4 (32.0-36.0) g/dL RDW Std Deviation 41.2 (36.4-46.3) fL RDW Coeff of Art 13.2 (11.5-14.5) % Plt Count 402 H (130-400) K/uL MPV 9.7 (9.4-12.4) fL Sodium 138 (136-145) mmol/L Potassium 4.0 (3.5-5.1) mmol/L Chloride 108 H (98-107) mmol/L Carbon Dioxide 22 (21-32) mmol/L Anion Gap 8 (3-11) BUN 4 L (6-23) mg/dl Creatinine 0.66 (0.6-1.2) mg/dl Est Cr Clr Drug Dosing 97.2 ml/min Est GFR ( Amer) 115.3 ml/min Est GFR (Non-Af Amer) 99.4 ml/min BUN/Creatinine Ratio 6.1 L (10-20) Glucose 94 (70-99(Fasting)) mg/dl Calcium 8.6 (8.6-10.3) mg/dl Magnesium 1.9 (1.7-2.4) mg/dl (1) Acute appendicitis Acute appendicitis type: with localized peritonitis Appendicitis gangrene presence: without gangrene Appendicitis perforation presence: with perforation Appendicitis abscess presence: with abscess Qualified Code(s): K35.33 - Acute appendicitis with perforation, localized peritonitis, and gangrene, with abscess
--- NOTE | 2023-09-28 12:55 | Hospitalist Progress Note ---
Date of Service September 28, 2023 Assessment & Plan (1) Sepsis: (2) Abdominal pain: (3) Perforated appendix: Plan This is a 57-year-old female who is otherwise healthy and does not take any prescription medication who presents to ED after experiencing abdominal pain for 3 days. She is being managed for the following: Sepsis, POA. Abdominal Pain Perforated appendix Appendiceal Abscess Patient presented to the ED with abdominal pain for [address] abd/pelvis: Above findings consistent with perforated acute appendicitis with an associated 7.0 x 3.0 cm periappendiceal abscess as described above. Status post IR drainage 09/26/2023, Intra-op cultureE. coli; sensitive to ceftriaxone Continue with IV antibiotic. Will change Zosyn to ceftriaxone and Flagyl. Discussed with infectious disease patient will need at least 2 weeks of antibiotics after removal of the drain and follow-up CT abdomen/pelvis. Follow-up with surgery for interval appendectomy. Antiemetics, analgesia CBC, BMP in a.m Tobacco abuse pt declines nicotine patch at this time encourage cessation DVT ppx: SQ Lovenox FULL CODE PCP: No PCP, from [facility] Dispo: Likely DC in next 1 to 2 days with surgical clearance. Please note the above document was generated using voice recognition software. It may contain grammatical, syntax or spelling errors. Any formal questions or concerns about the content, text or information contained within the body of this dictation should be directly addressed to the provider for clarification Admission and Anticipated Discharge Date Admission Date: September 24, 2023 Subjective Patient seen and examined at bedside. She reports cramping pain in her right lower quadrant. Denies fever, chills, chest pain, dizziness or urinary symptoms. Review of Systems Review of Systems: All systems reviewed & are unremarkable except as noted in Subjective Physical Exam Physical Exam: Constitutional: WD/WN, nontoxic appearing, vitals as above, NAD, sitting up in bed, pleasant, conversing easily Respiratory: normal respiratory effort, lungs clear to auscultation, no wheeze, rales, rhonchi. Normal insp/exp effort, no accessory muscle use Cardiovascular: tachycardic, reg rhythm, no murmur, no edema Vessels: no JVD or carotid bruit Chest: normal inspection of chest Abdomen: Dressing in place in right lower quadrant with IR drain. IR drainage shows pus. Musculoskeletal: no cyanosis or clubbing, extremities motor strength 5/5 Skin: no rashes, warm and dry normal turgor Neurologic: PERRL, EOMI, accommodation nl, no face palsy, no dysarthria CN's II-XI intact bilaterally and moves all extremities Psychiatric: A+Ox3, euthymic affect Lymphatic: no cervical or axillary lymphadenopathy : deferred Results & Data Results & Data Vital Signs (Past 12 Hours) Vital Signs Temp Pulse Resp BP Pulse Ox O2 Del Method 09/28/23 12:07 36.8 C 74 17 105/69 95 Room Air 09/28/23 08:19 36.7 C 72 17 112/71 94 Room Air 09/28/23 03:00 36.8 C 68 18 109/73 96 Room Air
[2023-09-28] MEDS: metroNIDAZOLE 500 MG/100 ML BAG IV SCH (16:06)
[2023-09-28] MEDS: cefTRIAXone SODIUM 2,000 MG in DEXTROSE 5 % MINI-B 50 ML IV SCH (16:06)
[2023-09-29 06:35] LABS: Basophils # (auto) 0.06 K/uL (0.00-0.20); Basophils % (auto) 0.5 %; Eosinophils # (auto) 0.27 K/uL (0.00-0.50); Eosinophils % (auto) 2.3 %; Hematocrit (blood only) 33.3 % (37.0-47.0); Immature Granulocytes # (auto) 0.17 K/uL (0.01-0.20); Immature Granulocytes % (auto) 1.5 %; Lymphocytes # (auto) 3.78 K/uL (1.20-3.40); Lymphocytes % (auto) 32.6 %; Mean Corpuscular Hemoglobin 28.5 pg (25.0-34.0); Mean Corpuscular Volume 86.3 fL (80.0-100.0); Mean Platelet Volume 9.1 fL (9.4-12.4); Monocytes # (auto) 1.08 K/uL (0.11-0.59); Monocytes % (auto) 9.3 %; Neutrophils # (auto) 6.24 K/uL (1.40-6.50); Neutrophils % (auto) 53.8 %; Platelet Count 465 K/uL (130-400); RDW Coefficient of Variation 13.5 % (11.5-14.5); Red Blood Count 3.86 M/uL (4.20-5.40)
[2023-09-29 06:50] LABS: BUN Creatinine Ratio 12.5 (10-20); Calcium 8.8 mg/dl (8.6-10.3); Creatinine Clr Calc Pharmacy 100.2 ml/min; Est GFR (African American) 116.4 ml/min; Est GFR (Non-African American) 100.5 ml/min; Potassium 4.1 mmol/L (3.5-5.1)
--- NOTE | 2023-09-29 12:01 | Hospitalist Progress Note ---
Date of Service September 29, 2023 Assessment & Plan (1) Sepsis: (2) Abdominal pain: (3) Perforated appendix: Plan This is a 57-year-old female who is otherwise healthy and does not take any prescription medication who presents to ED after experiencing abdominal pain for 3 days. She is being managed for the following: Sepsis, POA. Abdominal Pain Perforated appendix Appendiceal Abscess Patient presented to the ED with abdominal pain for [address] abd/pelvis: Above findings consistent with perforated acute appendicitis with an associated 7.0 x 3.0 cm periappendiceal abscess as described above. Status post IR drainage 09/26/2023, Intra-op cultureE. coli; sensitive to ceftriaxone Continue with IV antibiotic. Will change Zosyn to ceftriaxone and Flagyl. Discussed with infectious disease patient will need at least 2 weeks of antibiotics after removal of the drain and follow-up CT abdomen/pelvis. Follow-up with surgery for interval appendectomy. Antiemetics, analgesia CBC, BMP in a.m Tobacco abuse pt declines nicotine patch at this time encourage cessation DVT ppx: SQ Lovenox FULL CODE PCP: No PCP, from [facility] Dispo: Continue to be hospitalized for IV antibiotics as per recommendation by surgery. Likely DC tomorrow a.m. on oral antibiotics. Please note the above document was generated using voice recognition software. It may contain grammatical, syntax or spelling errors. Any formal questions or concerns about the content, text or information contained within the body of this dictation should be directly addressed to the provider for clarification Admission and Anticipated Discharge Date Admission Date: September 24, 2023 Subjective Patient seen and examined at bedside. She is comfortably lying on the bed; not in distress. Denies any abdomen pain or discomfort today. Review of Systems Review of Systems: All systems reviewed & are unremarkable except as noted in Subjective Physical Exam Physical Exam: Constitutional: WD/WN, nontoxic appearing, vitals as above, NAD, sitting up in bed, pleasant, conversing easily Respiratory: normal respiratory effort, lungs clear to auscultation, no wheeze, rales, rhonchi. Normal insp/exp effort, no accessory muscle use Cardiovascular: tachycardic, reg rhythm, no murmur, no edema Vessels: no JVD or carotid bruit Chest: normal inspection of chest Abdomen: Dressing in place in right lower quadrant with IR drain. IR drainage shows pus. Musculoskeletal: no cyanosis or clubbing, extremities motor strength 5/5 Skin: no rashes, warm and dry normal turgor Neurologic: PERRL, EOMI, accommodation nl, no face palsy, no dysarthria CN's II-XI intact bilaterally and moves all extremities Psychiatric: A+Ox3, euthymic affect Lymphatic: no cervical or axillary lymphadenopathy : deferred Results & Data Results & Data Vital Signs (Past 12 Hours) Vital Signs Temp Pulse Pulse Resp BP Pulse Ox O2 Del Method 09/29/23 11:31 36.8 C 77 16 88/58 L 95 Room Air 09/29/23 07:50 36.6 C 79 16 98/67 L 94 Room Air 09/29/23 07:22 74 09/29/23 05:00 36.8 C 75 18 113/64 93 Room Air 09/29/23 01:15 36.8 C 81 18 105/69 94 Room Air
--- NOTE | 2023-09-29 12:27 | Surgery Progress Note ---
Date of Service September 29, 2023 Assessment & Plan (1) Acute appendicitis: Plan: IR drain in place. doing well continue IV antibiotics - 1 more day advance diet as tolerated Discharge to home tomorrow Home on Augmentin Follow up in clinic in 1 week for drain removal Admission and Anticipated Discharge Date Admission Date: September 24, 2023 Subjective Patient seen and examined at bedside. She is comfortably lying on the bed; no nausea/vomiting Denies any abdomen pain or discomfort today. Physical Exam Physical Exam: AFVSS NAD, A&O x 3 Abdomen: Soft, mild TTP in RLQ RLQ catheter in place draining purulent fluid Results & Data Vital Signs (Past 12 Hours) Vital Signs Temp Pulse Pulse Resp BP Pulse Ox O2 Del Method 09/29/23 11:31 36.8 C 77 16 88/58 L 95 Room Air 09/29/23 07:50 36.6 C 79 16 98/67 L 94 Room Air 09/29/23 07:22 74 09/29/23 05:00 36.8 C 75 18 113/64 93 Room Air 09/29/23 01:15 36.8 C 81 18 105/69 94 Room Air Laboratory Results 09/29/23 Range/Units 05:54 WBC 11.60 H (4.8-10.8) K/ul RBC 3.86 L (4.20-5.40) M/uL Hgb 11.0 L (12.0-16.0) g/dl Hct 33.3 L (37.0-47.0) % MCV 86.3 (80.0-100.0) fL MCH 28.5 (25.0-34.0) pg MCHC 33.0 (32.0-36.0) g/dL RDW Std Deviation 42.0 (36.4-46.3) fL RDW Coeff of Art 13.5 (11.5-14.5) % Plt Count 465 H (130-400) K/uL MPV 9.1 L (9.4-12.4) fL Immature Gran % (Auto) 1.5 % Neut % (Auto) 53.8 % Lymph % (Auto) 32.6 % [place] % (Auto) 9.3 % Eos % (Auto) 2.3 % Baso % (Auto) 0.5 % Neut # (Auto) 6.24 (1.40-6.50) K/uL Lymph # (Auto) 3.78 H (1.20-3.40) K/uL [place] # (Auto) 1.08 H (0.11-0.59) K/uL Eos # (Auto) 0.27 (0.00-0.50) K/uL Baso # (Auto) 0.06 (0.00-0.20) K/uL Immature Gran # (Auto) 0.17 (0.01-0.20) K/uL Sodium 138 (136-145) mmol/L Potassium 4.1 (3.5-5.1) mmol/L Chloride 109 H (98-107) mmol/L Carbon Dioxide 22 (21-32) mmol/L Anion Gap 7 (3-11) BUN 8 (6-23) mg/dl Creatinine 0.64 (0.6-1.2) mg/dl Est Cr Clr Drug Dosing 100.2 ml/min Est GFR ( Amer) 116.4 ml/min Est GFR (Non-Af Amer) 100.5 ml/min BUN/Creatinine Ratio 12.5 (10-20) Glucose 92 (70-99(Fasting)) mg/dl Calcium 8.8 (8.6-10.3) mg/dl (1) Acute appendicitis Acute appendicitis type: with localized peritonitis Appendicitis gangrene presence: without gangrene Appendicitis perforation presence: with perforation Appendicitis abscess presence: with abscess Qualified Code(s): K35.33 - Acute appendicitis with perforation, localized peritonitis, and gangrene, with abscess
[2023-09-30 06:25] LABS: Basophils # (auto) 0.06 K/uL (0.00-0.20); Basophils % (auto) 0.6 %; Eosinophils # (auto) 0.25 K/uL (0.00-0.50); Eosinophils % (auto) 2.4 %; Hematocrit (blood only) 37.1 % (37.0-47.0); Hemoglobin 11.9 g/dl (12.0-16.0); Immature Granulocytes # (auto) 0.17 K/uL (0.01-0.20); Immature Granulocytes % (auto) 1.6 %; Lymphocytes # (auto) 3.32 K/uL (1.20-3.40); Lymphocytes % (auto) 31.9 %; Mean Corpuscular Hemoglobin 28.1 pg (25.0-34.0); Mean Corpuscular Hgb Conc 32.1 g/dL (32.0-36.0); Mean Corpuscular Volume 87.5 fL (80.0-100.0); Mean Platelet Volume 8.6 fL (9.4-12.4); Monocytes # (auto) 0.87 K/uL (0.11-0.59); Monocytes % (auto) 8.3 %; Neutrophils # (auto) 5.75 K/uL (1.40-6.50); Neutrophils % (auto) 55.2 %; Platelet Count 505 K/uL (130-400); RDW Coefficient of Variation 13.4 % (11.5-14.5); Red Blood Count 4.24 M/uL (4.20-5.40); White Blood Count 10.42 K/ul (4.8-10.8)
[2023-09-30 06:31] LABS: BUN Creatinine Ratio 14.7 (10-20); Calcium 9.2 mg/dl (8.6-10.3); Creatinine Clr Calc Pharmacy 85.5 ml/min; Est GFR (Non-African American) 89.7 ml/min; Potassium 4.2 mmol/L (3.5-5.1)
--- NOTE | 2023-09-30 09:53 | Surgery Progress Note ---
Date of Service September 30, 2023 Assessment & Plan (1) Perforated appendix: Plan: discharge drain to be evaluated in [facility] 1 week Admission and Anticipated Discharge Date Admission Date: September 24, 2023 Subjective no complaints Review of Systems Constitutional: no fever and no chills Respiratory: no cough and no dyspnea Cardiovascular: no chest pain Gastrointestinal: no abdominal pain, no nausea, no vomiting and no change in bowel habits Genitourinary: no dysuria Physical Exam Constitutional: WD/WN, vitals as above Gastrointestinal (Abdomen): Inspection/Auscultation: abdomen normal to inspection and normal bowel sounds; abdomen not distended Percussion/Palpation: + abdomen tender (mild) and abdomen soft; no guarding and abdomen not rigid drain in place Results & Data Vital Signs (Past 12 Hours) Vital Signs Temp Pulse Pulse Resp BP Pulse Ox O2 Del Method 09/30/23 07:55 36.6 C 68 18 99/62 L 95 Room Air 09/30/23 07:21 64 09/30/23 03:39 36.6 C 72 16 97/68 L 95 Room Air 09/29/23 23:27 36.9 C 79 16 104/70 95 Room Air
--- NOTE | 2023-09-30 12:26 | Discharge Summary ---
Date of Service September 30, 2023 Admission HPI Per Admitting Provider This is a 57-year-old female who is otherwise healthy and does not take any prescription medication who presents to ED after experiencing abdominal pain for 3 days. She states that she noted on Tuesday she developed abdominal pain after eating dinner and she vomited. After this episode she states she laid in bed for 3 straight days and slept. She did wake up occasionally for a drink of water. She felt like she was getting dehydrated. She woke up today because she had to go to work. 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 Today she has been having right lower quadrant abdominal pain and nausea. She offered to present to ED for further evaluation. She denies any documented fever at home. She further denies any chills, sweats, lightheadedness, dizziness, chest pain, shortness of breath, vomiting today, diarrhea, constipation, dysuria, increased urgency or frequency with urination. In ED patient underwent CT scan of abdomen pelvis reveals a perforated acute appendicitis with associated 7 x 3 cm periappendiceal abscess. She was empirically started on IV Zosyn as well as IV fluids. ED provider discussed with general surgery who recommended admission to the hospital, IV antibiotics and likely IR drainage for abscess. Admission Exam Per Admitting Provider Constitutional: WD/WN, nontoxic appearing, vitals as above, NAD, sitting up in bed, pleasant, conversing easily Head: Normocephalic, Atraumatic Eyes: PERRL, conjunctivae normal, anicteric sclerae ENMT: external ear and nose normal, oropharynx normal Neck: trachea midline, no thyromegaly normal visual inspection Respiratory: normal respiratory effort, lungs clear to auscultation, no wheeze, rales, rhonchi. Normal insp/exp effort, no accessory muscle use Cardiovascular: tachycardic, reg rhythm, no murmur, no edema Vessels: no JVD or carotid bruit Chest: normal inspection of chest Abdomen: normal bowel sounds, soft, +TTP RLQ, +rebound, no guarding, no hepatosplenomegaly Musculoskeletal: no cyanosis or clubbing, extremities motor strength 5/5 Skin: no rashes, warm and dry normal turgor Neurologic: PERRL, EOMI, accommodation nl, no face palsy, no dysarthria CN's II-XI intact bilaterally and moves all extremities Psychiatric: A+Ox3, euthymic affect Lymphatic: no cervical or axillary lymphadenopathy : deferred Principal Diagnosis Appendiceal Abscess status post IR drainage Discharge Exam Constitutional: WD/WN, nontoxic appearing, vitals as above, NAD, sitting up in bed, pleasant, conversing easily Respiratory: normal respiratory effort, lungs clear to auscultation, no wheeze, rales, rhonchi. Normal insp/exp effort, no accessory muscle use Cardiovascular: tachycardic, reg rhythm, no murmur, no edema Vessels: no JVD or carotid bruit Chest: normal inspection of chest Abdomen: Dressing in place in right lower quadrant with IR drain. IR drainage shows pus. Musculoskeletal: no cyanosis or clubbing, extremities motor strength 5/5 Skin: no rashes, warm and dry normal turgor Neurologic: PERRL, EOMI, accommodation nl, no face palsy, no dysarthria CN's II-XI intact bilaterally and moves all extremities Psychiatric: A+Ox3, euthymic affect Lymphatic: no cervical or axillary lymphadenopathy : deferred Discharge Data Allergies Allergy/AdvReac Type Severity Reaction Status Date / Time No Known Allergies Allergy Unverified 09/25/23 02:47 Consultations 09/24/23 18:58 Consult General Surgery Routine Ordered Studies 09/24/23 16:21 CT abd pelvis IV con only Stat 09/26/23 11:[address] periton/retro w/gdnce Stat Hospital Course (1) Sepsis: (2) Abdominal pain: (3) Perforated appendix: Plan Patient is a 57-year-old female who is otherwise healthy and does not take any prescription medication who presents to ED after experiencing abdominal pain for [address] abdomen and pelvis consistent with perforated acute appendicitis with associated with 7.0 x 3.0 cm periappendiceal abscess. Patient was admitted to telemetry floor. She was started on IV fluids, IV antibiotics and surgical consultation was done. Patient underwent IR drainage on September 26, 2023. IntraOp culture was positive for E. coli; Discussion was done with infectious disease; patient will need at least 2 weeks of antibiotic after removal of the drainage. She will also need follow-up CT abdomen and pelvis. Patient was discharged with the drain. Patient to follow-up with surgery for drain removal. Patient to follow-up with PCP. Patient will need CT abdomen pelvis with IV contrast after completion of antibiotic course to ensure resolution of appendiceal abscess Please note the above document was generated using voice recognition software. It may contain grammatical, syntax or spelling errors. Any formal questions or concerns about the content, text or information contained within the body of this dictation should be directly addressed to the provider for clarification Total Time Total Time Spent Total Time Spent (In Minutes): 35 Total Time Includes: Examination of the Patient, Discharge Planning, Medication Reconciliation, Communication With Other Providers and Other Discharge Plan Discharge Items Patient Disposition: Home - Self-Care Reason For Visit: SEPSIS 2/2 ACUTE APPENDICITIS Discharge Diagnosis: Appendicular abscess status post IR drainage Activity: Resume your previous activity Non-emergency contact: Primary Care Provider Call non-emergency contact if: you have any medication questions and your symptoms worsen Follow-up/Referrals: Galileo Shirley MD [Physician] - (Date & Time 10/06/2023 9:45 AM Provider Galileo Shirley MD Department General Surgery, [facility] ) Maldonado Hollingsworth MD [Outside Practitioners] - (Date & Time 10/05/2023 3:20 PM Provider Maldonado Hollingsworth MD Department Family Practice [facility] ) Diet: Regular Addtl Attending Provider Instructions: You were admitted to the hospital due to abdominal pain. You are found to have appendicular abscess. You underwent drainage by interventional radiology on September 26, 2023. You need to follow-up with Dr. Shirley to take out the drain next week. You will need to take Augmentin(antibiotics) twice a day. The antibiotics should be taken for 2 weeks more after the drain is taken out. A prescription for 3 weeks has been sent to your pharmacy. If you experience fever, chills, increasing abdominal pain, diarrhea; please seek medical care. You need repeat CT abdomen after the completion of antibiotic to ensure resolution of the abscess. You will also need removal of the appendix in the future. The timing of the surgery is as per the surgeon. Please follow-up with your primary care doctor as scheduled. Pending Studies at Discharge: No Stand-Alone Forms: Clacendix, Smoking Cessation Medications and DC Order Prescriptions: New amoxicillin-pot clavulanate 875-125 mg tablet 1 tab PO BID 21 Days Qty: 42 0RF Discontinued amoxicillin-pot clavulanate [Augmentin] 875-125 mg tablet 1 tab PO BID Qty: 20 0RF Discharge Orders: Discharge Order (Routine); Ordered 09/30/23 Ordered By: Marito Koehler Admission Data Admit Date/Time: 09/24/23 18:58 Attending Provider: Marito Koehler Admit Provider: Kacy Spear Primary Care Provider: PCP,NO Other Providers: Galileo Shirley Other Interventions: Discharge Summary Assessment (RN) Last Done: 09/30/23 12:47
== END 2023-09-30 15:43 | disposition home or self-care (01) | DRG 871 ==
LOC: ED 15:57 → SUATTDRO 18:58 → EDINP 18:58 → 2N 21:33